=== PATIENT | female | born 1965 | race Caucasian/White ===

== ENCOUNTER 2020-02-13 02:26 | Outpatient (CLI) | payer BC, SELFPAY ==
[2020-02-14 23:25] LABS: COVID-19 RT-PCR Result NEGATIVE (Negative)
== END 2020-02-13 02:46 ==
PROVIDERS: PCP Internal Medicine; Visit Provider Nurse Practitioner Family
DX: Z20.828 Contact with and (suspected) exposure to other viral communicable diseases (principal)
CPT/HCPCS: U0003

== ENCOUNTER 2023-05-13 13:05 | Outpatient (REF) | payer BC, SELFPAY | END 2023-05-13 13:06 | disposition home or self-care (01) | LOC: NCHCN 13:05 | PROVIDERS: PCP Internal Medicine; Visit Provider Physician Assistant Medical | DX: J02.9 Acute pharyngitis, unspecified (principal) | CPT/HCPCS: 87070 ==

== ENCOUNTER 2023-12-02 02:44 | Outpatient (CLI) | payer BC, SELFPAY ==
[2023-12-02 13:55] LABS: WBC 4.06 10^3/uL (4.4-10.8)
[2023-12-02 14:24] LABS: Anion Gap 7.5 mmol/L (3-11); BUN 12 mg/dL (7-18); CO2 27.5 mmol/L (21.0-32.0); CREATININE 0.9 mg/dL (0.55-1.02); Calcium 9.2 mg/dL (8.5-10.1); Chloride 104 mmol/L (98-107); Estimated GFR 73.19 (mL/min/1.73m2); Glucose 116 mg/dL (74-106); Potassium 4.1 mmol/L (3.5-5.1); Sodium 139 mmol/L (136-145)
[2023-12-02 14:27] LABS: Hemoglobin A1C 5.7 % (<5.7)
== END 2023-12-02 02:45 | disposition home or self-care (01) ==
PROVIDERS: PCP Internal Medicine; Visit Provider Nurse Practitioner Family
DX: Z13.1 Encounter for screening for diabetes mellitus (principal); R63.4 Abnormal weight loss
CPT/HCPCS: 36415; 80048; 85048; 83036